=== PATIENT | male | born 1990 | race Caucasian/White ===

== ENCOUNTER → 2023-03-17 | Day surgery (SDC) | payer BC ==
[~2023-03-17] MED LIST: Acetaminophen/HYDROcodone 325-5 MG Tab PO ONE; Albuterol 0.083% 2.5 MG/3 ML Neb Soln NEB PRN; Bupivacaine 0.25% 30 ML SDV ONE; Bupivacaine 0.5% 30 ML SDV ONE; Dexamethasone 4 MG/ML 5 ML MDV ONE; Dexmedetomidine 200 MCG/2 ML SDV ONE; HYDROmorphone 1 MG/ML Syringe IVPUSH PRN; Ketorolac 30 MG/ML SDV ONE; Lactated Ringers 1,000 ML IV SCH; Lidocaine 2% 100 MG/5 ML Syringe ONE; Metoclopramide 10 MG/2 ML SDV IVPUSH PRN; Metoclopramide 10 MG/2 ML SDV ONE; Midazolam 1 MG/ML 2 ML SDV ONE; Morphine 10 MG/ML SDV ONE; Morphine 2 MG/ML SYRINGE IVPUSH PRN; Naloxone 0.4 MG/ML SDV IVPUSH PRN; Ondansetron 4 MG/2 ML SDV IVPUSH PRN; Ondansetron 4 MG/2 ML SDV ONE; Rocuronium Bromide 50 MG/5 ML Syringe ONE; Ropivacaine 0.5% 5 MG/ML 30 ML SDV ONE; Scopolamine 1.5 MG Transdermal Patch ONE; Scopolamine 1.5 MG Transdermal Patch TOP ONE; Sugammadex Sodium 200 MG/2 ML VIAL ONE; ceFAZolin 1 GM Vial ONE; ceFAZolin 2 GM in Sodium Chloride 0.9% 50 ML IV ONE; droPERidol 5 MG/2 ML SDV IVPUSH PRN; fentaNYL 100 MCG/2 ML SDV ONE; fentaNYL 50 MCG/ML SDV IVPUSH PRN; propofoL 50 ML ONE
== END | disposition home or self-care (01) ==
LOC: MW.SDS 08:29
PROVIDERS: ATTEND Surgery
DX: K40.90 Unilateral inguinal hernia, without obstruction or gangrene, not specified as recurrent (principal); F17.210 Nicotine dependence, cigarettes, uncomplicated; Z98.890 Other specified postprocedural states; Z82.49 Family history of ischemic heart disease and other diseases of the circulatory system
CPT/HCPCS: 49505; 64488; A9270; C1781; J0131; J0690; J1100; J1885; J2250; J2270; J2405; J2704; J2765; J2795; J3010; J3490; J7120